=== PATIENT | female | born 1960 | race Two or more races ===

== ENCOUNTER 2020-07-12 18:56 | Emergency (ER) | payer SELFPAY ==
[~2020-07-12] VITALS: Ht 162.6 cm; Wt 65.8 kg
[2020-07-12 19:04] VITALS: Ht 162.6 cm; Wt 65.8 kg
[2020-07-12 20:05] VITALS: BP 156/96
== END 2020-07-12 20:05 | disposition home or self-care (01) ==
LOC: ED 18:56 → EDSEX 18:56 → ED 20:05
DX: S61.215A Laceration without foreign body of left ring finger without damage to nail, initial encounter (principal); W26.0XXA Contact with knife, initial encounter; Y93.89 Activity, other specified; Y92.89 Other specified places as the place of occurrence of the external cause; Y99.8 Other external cause status
CPT/HCPCS: 90715

== ENCOUNTER 2020-07-14 18:02 | Emergency (ER) | payer SELFPAY ==
[~2020-07-14] VITALS: Ht 160 cm; Wt 67.1 kg
[2020-07-14 18:54] VITALS: Ht 160 cm; Wt 67.1 kg
== END 2020-07-14 19:10 | disposition home or self-care (01) ==
LOC: EDSEX 18:02 → ED 18:02
DX: S61.211D Laceration without foreign body of left index finger without damage to nail, subsequent encounter (principal); X58.XXXD Exposure to other specified factors, subsequent encounter

== ENCOUNTER 2020-07-19 15:58 | Emergency (ER) | payer SELFPAY ==
[~2020-07-19] VITALS: Ht 160 cm; Wt 68.0 kg
[2020-07-19 16:03] VITALS: Ht 160 cm; Wt 68.0 kg
[2020-07-19 17:35] VITALS: BP 128/79
== END 2020-07-19 17:35 | disposition home or self-care (01) ==
LOC: ED 15:58
DX: S61.211D Laceration without foreign body of left index finger without damage to nail, subsequent encounter (principal); R03.0 Elevated blood-pressure reading, without diagnosis of hypertension; X58.XXXD Exposure to other specified factors, subsequent encounter